=== PATIENT | female | born 1975 | race Caucasian/White ===

== ENCOUNTER 2018-11-06 17:16 | Emergency (ER) | payer OTHER ==
[~2018-11-06] VITALS: Ht 147.3 cm; Wt 79.4 kg
== END 2018-11-06 19:50 | disposition home or self-care (01) ==
LOC: ER 17:16
DX: S61.012A Laceration without foreign body of left thumb without damage to nail, initial encounter (principal); F43.10 Post-traumatic stress disorder, unspecified; F32.9 Major depressive disorder, single episode, unspecified; Z88.5 Allergy status to narcotic agent; F17.210 Nicotine dependence, cigarettes, uncomplicated; W26.0XXA Contact with knife, initial encounter
CPT/HCPCS: 12042; 99282-25